=== PATIENT | male | born 2005 | race Caucasian/White ===

== ENCOUNTER 2024-12-22 14:07 | Outpatient (CLI) | payer BC, SELFPAY ==
--- NOTE | 2024-12-22 14:30 | MR_ITS ---
[facility] [address] [facility] [address] Phone:?[phone] Fax:?[phone] Referring Physician Information: Gopal Hall M.D. [address] [place] [id number] Phone:?[phone] Fax:?[phone] Patient:Niles Eason D.O.B:?2005 Sex:?Male Phone:?[phone] [facility] MRN:?[id number] Exam Date:?12/22/2024 EXAM: MRI of the LEFT KNEE, without contrast CLINICAL HISTORY: Pain in left knee. Left knee anterior cruciate ligament tear. Left knee joint effusion. Left knee injury. COMPARISONS: Plain radiographs 12/01/2024. TECHNICAL: MR sequences of the left knee: sagittals: PD, PDFS coronals: PD, STIR axials: PD, T2 FS CONTRAST: None SEDATION: None FINDINGS: Bones: Extensive bone marrow contusion of the peripheral portion of the lateral femoral condyle. Patellofemoral joint: Cartilage: Intact. Retinacula: The medial and lateral retinacula are intact. Fat pads: The infrapatellar, quadriceps, and prefemoral fat pads are unremarkable. The Insall Salvati index is within normal limits. The lateral trochlear inclination angle measures 3 mm. The tibial tubercle to trochlear groove distance measures 2.0 cm. Lateral patellar subluxation currently. Knee joint: Effusion: Moderate to large left knee joint effusion. Popliteal cyst: Tiny popliteal cyst. Intra-articular bodies: None. Somewhat prominent medial plica extending near the median patellar ridge. Mild deep infrapatellar bursitis. Posteromedial corner: The semimembranosus and pes anserine tendons are intact. Medial compartment: Medial meniscus: Intact. Cartilage: Intact. Lateral compartment: Lateral meniscus: Intact. Cartilage: Intact. Ligaments: Anterior cruciate ligament: Intact. Posterior cruciate ligament: Intact. Medial collateral ligament: Intact. Posterior oblique ligament: Intact. Fibular collateral ligament: 1.5 x 1.1 x 0.5 cm fluid collection or ganglion within the proximal portion of the fibular collateral ligament best seen on coronal series 8 image 21 and axial series 4 images 13 through 19. Most of the fibular collateral ligament including much of the femoral attachment remains intact. Posterolateral corner: The distal biceps femoris tendon, iliotibial band, popliteus tendon, popliteus muscle, popliteofibular ligament, and arcuate ligament are intact. Extensor mechanism: Patellar tendon: Intact. Quadriceps tendon: Intact. IMPRESSION: 1. Extensive bone marrow contusion of the peripheral portion of the lateral femoral condyle is consistent with sequela of transient lateral patellar dislocation injury. Lateral patellar subluxation currently. 2. 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 The tibial tubercle to trochlear groove distance measures 2.0 cm. 3. 1.5 x 1.0 x 0.5 cm fluid collection or ganglion within the proximal portion of the fibular collateral ligament, of uncertain etiology. Sequela of previous partial injury is not excluded. Most of the fibular collateral ligament including much of the femoral attachment remains intact. 4. A somewhat prominent medial plica extends near the median patellar ridge. 5. Moderate to large left knee joint effusion. 6. Mild deep infrapatellar bursitis. 7. No cruciate ligament injury, meniscal pathology, or chondral pathology of the left knee. No retinacular injury, medial patellofemoral ligament injury, or intra-articular body of the left knee. RCB Electronically signed on 12/23/2024 11:32:00 AM by Stevenson Hall M.D.
== END 2024-12-22 14:08 | disposition home or self-care (01) ==
PROVIDERS: Visit Provider Orthopaedic Surgery
DX: M25.562 Pain in left knee (principal); M25.462 Effusion, left knee; M70.42 Prepatellar bursitis, left knee
CPT/HCPCS: 73721